=== PATIENT | female | born 1975 ===

== ENCOUNTER 2020-08-22 06:25 | Day surgery (SDC) | payer OTHER | END 2020-08-22 12:00 | disposition home or self-care (01) | LOC: AMB-ENDOS 06:25 | PROVIDERS: ATTEND Surgery | DX: D13.0 Benign neoplasm of esophagus (principal); K44.9 Diaphragmatic hernia without obstruction or gangrene; Z20.822 Contact with and (suspected) exposure to COVID-19 ==